=== PATIENT | male | born 1980 | race African-American/Black ===

== ENCOUNTER 2016-10-05 02:42 | Emergency (ER) | payer MEDICAID ==
[~2016-10-05] VITALS: Ht 170.2 cm; Wt 86.0 kg
[2016-10-05 02:43] VITALS: BP 135/84
[2016-10-05] MEDS ORDERED: CEFTRIAXONE 250 MG ONE (03:15)
[2016-10-05] MEDS ORDERED: AZITHROMYCIN 250 MG TABLET ONE ×2 (03:18→03:26)
[2016-10-05] MEDS ORDERED: CEFTRIAXONE 250 MG IM ONE (03:30)
[2016-10-05] MEDS ORDERED: AZITHROMYCIN 500 MG TABLET PO ONE (03:30)
== END 2016-10-05 03:35 | disposition home or self-care (01) ==
LOC: ED 03:25
DX: A74.9 Chlamydial infection, unspecified (principal); N34.2 Other urethritis
CPT/HCPCS: 96372; 99283; J0696

== ENCOUNTER 2017-02-02 16:09 | Emergency (ER) | payer MEDICAID ==
[~2017-02-02] VITALS: Ht 170.2 cm; Wt 89.2 kg
[2017-02-02 16:14] VITALS: BP 133/81
[2017-02-02] MEDS ORDERED: AZITHROMYCIN 500 MG TABLET ONE (17:06)
[2017-02-02] MEDS ORDERED: CEFTRIAXONE 250 MG ONE (17:06)
[2017-02-02] MEDS ORDERED: CEFTRIAXONE 250 MG IM ONE (18:00)
[2017-02-02] MEDS ORDERED: AZITHROMYCIN 500 MG TABLET PO ONE (18:00)
== END 2017-02-02 17:44 | disposition home or self-care (01) ==
LOC: ED 17:38
DX: A56.01 Chlamydial cystitis and urethritis (principal)
CPT/HCPCS: 81003; 96372; 99283; J0696